=== PATIENT | female | born 1950 | race African-American/Black ===

== ENCOUNTER 2017-06-08 10:26 | Inpatient (IN) | payer MEDICARE, OTHER ==
[~2017-06-08] VITALS: Ht 170.2 cm; Wt 72.6 kg
--- NOTE | 2017-06-08 | NUR ---
RECEIVED PATIENT IN BED, ALERT AND ORIENTED X3, CALM, NO SOB, NO RESPIRATORY DISTRESS, DENIES ANY PAIN AT THIS TIME, LEFT AC PERIPHERAL LINE IS PATENT, FLUSHED WELL, ON TELE MONITORING, SR, AT THE BEDSIDE, NEEDS ATTENDED, CALL LIGHT WITHIN REACH.
--- NOTE | 2017-06-08 10:32 | NUR ---
BIBRA FOR ALTERED MENTAL STATUS AND GENERALIZED WEAKNESS, PATIENT ALSO REPORTED NAUSEA AND VOMITTING. RECEIVED PT AAO3. APPEARS IN NO APPARENT DISTRESS. RESPIRATION EVEN AND UNLABORED. SKIN IS WARM TO TOUCH AND NON DIAPHORETIC. PATIENT IS AFEBRILE. GOWNED PT AND PLACED ON TELE MONITOR. VSS
[2017-06-08] MEDS ORDERED: ONDANSETRON HCL/PF 4 MG/2 ML VIAL ONE (10:40)
--- NOTE | 2017-06-08 10:46 | NUR ---
DUE MEDS GIVEN ORDERED
--- NOTE | 2017-06-08 10:47 | NUR ---
EKG IN PROGRESS
[2017-06-08] MEDS ORDERED: IV NS 0.9% 500 ML BAG IV ONE (11:00)
[2017-06-08] MEDS ORDERED: ONDANSETRON HCL/PF 4 MG/2 ML VIAL IVP ONE (11:00)
[2017-06-08 11:20] LABS: CALCIUM, SERUM 8.8 mg/dL (8.5-10.1); CARBON DIOXIDE 21 mmol/L (21-32); CHLORIDE 105 mmol/L (98-107); CREATININE 0.8 mg/dL (0.6-1.3); GLUCOSE 163 mg/dL (74-106); POTASSIUM 3.7 mmol/L (3.5-5.1); SODIUM SERUM 137 mmol/L (136-145); UREA NITROGEN, BLOOD 12 mg/dL (7-18)
[2017-06-08 11:23] LABS: INR 0.95 (0.87-1.13); PROTHROMBIN TIME 9.9 SECS (9.5-12.7)
[2017-06-08 11:28] LABS: TROPONIN I < 0.017 ng/mL (0.00-0.056)
[2017-06-08] MEDS ORDERED: IV NS 0.9% 1,000 ML IV ONE (11:30)
[2017-06-08 11:33] LABS: B-TYPE NATRIURETIC PEPTIDE 59 PG/ML (0-125); BILIRUBIN,TOTAL 0.5 mg/dL (0.2-1.0); TOTAL PROTEIN, SERUM 7.1 g/dL (6.4-8.2)
[2017-06-08 11:50] LABS: ALANINE AMINOTRANSFERASE 15 U/L (12-78); ALBUMIN 3.3 g/dL (3.4-5.0); ALKALINE PHOSPHATASE 110 U/L (46-116); ASPARTATE AMINOTRANSFERASE 20 U/L (15-37); BILIRUBIN,DIRECT 0.1 mg/dL (0.0-0.2)
[2017-06-08 11:51] LABS: BASOPHILS # (AUTO) 0.1 /CMM (0.0-0.2); EOSINOPHILS # (AUTO) 0.1 /CMM (0.0-0.7); EOSINOPHILS % (AUTO) 1.6 % (0.0-6.0); HEMATOCRIT 44 % (33-45); HEMOGLOBIN 14.2 g/dL (11.5-14.8); LYMPHOCYTES % (AUTO) 16.3 % (20.0-44.0); MEAN CORPUSCULAR HEMOGLOBIN 28 PG (26.0-33.0); MEAN CORPUSCULAR HGB CONC 33 g/dl (31.0-36.0); MEAN CORPUSCULAR VOLUME 87 fL (82-100); MONOCYTES # (AUTO) 0.3 /CMM (0.1-1.30); MONOCYTES % (AUTO) 4.8 % (2.0-12.0); NEUTROPHILS # (AUTO) 4.4 /CMM (1.8-8.9); NEUTROPHILS % (AUTO) 76.3 % (43.0-81.0); PLATELET COUNT (AUTO) 138 /CMM (150-450); RDW COEFFICIENT OF VARIATION 12.9 (11.5-15.0); RED BLOOD CELL COUNT(AUTO) 5.01 MIL/uL (4.0-5.2); WHITE BLOOD COUNT (AUTO) 5.9 K/uL (4.3-11.0)
--- NOTE | 2017-06-08 12:43 | NUR ---
URINE SAMPLE COLLECTED SENT TO LAB
--- NOTE | 2017-06-08 12:54 | NUR ---
[facility] PAGED [phone]. DR BERNAL TRAY SERVER
[2017-06-08 12:56] LABS: APPEARANCE,URINE Clear (CLEAR); BILIRUBIN,URINE Negative (NEGATIVE); BLOOD, URINE Trace-intact Ery/uL (NEGATIVE); COLOR,URINE Yellow (YELLOW); KETONES,URINE Negative (NEGATIVE); LEUKOCYTE ESTERASE ,URINE Negative (NEGATIVE); NITRITE, URINE Negative (NEGATIVE); PH,URINE 5.5 (5.0-8.0); PROTEIN,URINE Negative (NEGATIVE); UGLUCOSE Negative (NEGATIVE); UROBILINOGEN,URINE 0.2 EU/dL (0.2)
[2017-06-08 13:04] LABS: EOSINOPHILS % (MANUAL) 3 % (0-4); LYMPHOCYTES % (MANUAL) 18 % (16-48); MONOCYTES % (MANUAL) 6 % (0-11.0); NEUTROPHILS % (MANUAL) 73 (42-76)
[2017-06-08] MEDS ORDERED: ALBU18HF2 IH (13:22)
[2017-06-08] MEDS ORDERED: HYDR50TA3 PO (13:22)
[2017-06-08] MEDS ORDERED: DONE10TA44 PO (13:22)
[2017-06-08] MEDS ORDERED: COMBIVENT IH (13:22)
[2017-06-08] MEDS ORDERED: AMLO5TAB2 PO (13:22)
[2017-06-08 13:27] LABS: RBC,URINE 0-2 /HPF (0-2)
[2017-06-08 13:28] LABS: BACTERIA,URINE None seen /HPF (None Seen); SQUAMOUS EPITHELIAL CELL,UR Few /HPF (None Seen); WBC,URINE NONE SEEN /HPF (0-3)
[2017-06-08] MEDS ORDERED: Z GUARD REMEDY 2 OZ OINT TP PRN (13:30)
[2017-06-08] MEDS ORDERED: MAG HYDROX/AL HYDROX/SIMETH 30 ML UDC PO PRN (13:30)
[2017-06-08] MEDS ORDERED: MAGNESIUM HYDROXIDE 30 ML UDC PO PRN (13:30)
[2017-06-08] MEDS ORDERED: HYDROCODONE/APAP 5/325MG 1 EACH TABLET PO PRN (13:30)
[2017-06-08] MEDS ORDERED: ONDANSETRON HCL/PF 4 MG/2 ML VIAL IVP PRN (13:30)
[2017-06-08] MEDS ORDERED: ACETAMINOPHEN 325 MG TABLET PO PRN (13:30)
[2017-06-08] MEDS ORDERED: ZOLPIDEM TARTRATE 5 MG TABLET PO PRN (13:30)
[2017-06-08] MEDS: ENOXAPARIN SODIUM 40 MG/0.4 ML DISP.SYRIN SQ SCH (13:30)
--- NOTE | 2017-06-08 14:08 | NUR ---
GAVE REPORT TO [facility] TELE ROOM 321 GENERALIZED WEAKNESS . MAGGIE LOGGING SUPERVISOR ADMITTING,
[2017-06-08 14:30] VITALS: BP 126/77
--- NOTE | 2017-06-08 14:45 | NUR ---
PLANNER INTERNKENO CLERK NOTE RECEIVED REPORT FROM LEILANI ER NURSE. PATIENT IS ALERT AND ORIENTED x4. NO PAIN AT THIS TIME. NO SOB OR DISTRESS NOTED. CALL LIGHT WITHIN REACH. SAFETY MEASURES IMPLEMENT. IV ON LEFT AC 20G, INTACT AND PATENT FLUSHING WELL. ABLE TO COMMUNICATE NEEDS. SKIN INTACT, NO ISSUES NOTED. AMBULATORY. ON CARDIAC DIET. TELE [id number], LOW 45. ALL BELONGINGS DOCUMENTED FOR, AND WITH PATIENT AT BEDSIDE. ON 2L/MIN OF OXYGEN VIA NASAL CANNULA 02 SAT AT 92%. HISTORY OF ASTHMA AND COPD. NO FAMILY HISTORY. MRSA, URINE AND BLOOD CX SAMPLE OBTAINED. WILL CONTINUE TO MONITOR
[2017-06-08 16:00] VITALS: BP 123/73
--- NOTE | 2017-06-08 17:00 | NUR ---
RICE FIELD WORKER NOTE PATIENT REFUSED MECHANICAL DVT PUMPS. EXPLAINED RISKS AND BENEFITS. PATIENT STILL REFUSED WILL ENDORSE TO PROFESSOR OF ENGLISH NURSE
--- NOTE | 2017-06-08 18:08 | NUR ---
JAZZ MUSICIAN CLOSING NOTE PATIENT IS ALERT AND ORIENTED x4. ALL NURSING NEEDS MET. ABLE TO COMMUNICATE NEEDS. NO PAIN AT THIS TIME. NO SOB OR DISTRESS NOTED. CALL LIGHT WITHIN REACH AT ALL TIMES. SAFETY MEASURES IMPLEMENTED. IV INTACT, NO REDNESS OR SWELLING NOTED. NO IVF RUNNING AT THIS TIME. KEPT CLEAN,DRY AND COMFORTABLE. WILL ENDORSE TO INVESTMENT ASSOCIATE NURSE FOR JOYCE
[2017-06-08 20:00] VITALS: BP 139/80
[2017-06-08] MEDS ORDERED: ALBUTEROL SULFATE 8 GM HFA.AER.AD IH PRN (23:30)
[2017-06-09] VITALS: BP 128/58
[2017-06-09] MEDS: IV NS 0.9% 1,000 ML IV PRN ×2 (00:20→16:56)
[2017-06-09 04:00] VITALS: BP 144/87
[2017-06-09 06:48] LABS: BASOPHILS % (AUTO) 0.4 % (0.0-2.0); EOSINOPHILS # (AUTO) 0.2 /CMM (0.0-0.7); HEMATOCRIT 39 % (33-45); HEMOGLOBIN 12.8 g/dL (11.5-14.8); LYMPHOCYTES # (AUTO) 1.3 /CMM (0.8-4.8); LYMPHOCYTES % (AUTO) 25.8 % (20.0-44.0); MEAN CORPUSCULAR HEMOGLOBIN 29 PG (26.0-33.0); MEAN CORPUSCULAR HGB CONC 33 g/dl (31.0-36.0); MEAN CORPUSCULAR VOLUME 88 fL (82-100); MONOCYTES # (AUTO) 0.4 /CMM (0.1-1.30); MONOCYTES % (AUTO) 6.9 % (2.0-12.0); NEUTROPHILS # (AUTO) 3.2 /CMM (1.8-8.9); NEUTROPHILS % (AUTO) 62.9 % (43.0-81.0); PLATELET COUNT (AUTO) 132 /CMM (150-450); RDW COEFFICIENT OF VARIATION 13.6 (11.5-15.0); RED BLOOD CELL COUNT(AUTO) 4.45 MIL/uL (4.0-5.2); WHITE BLOOD COUNT (AUTO) 5.1 K/uL (4.3-11.0)
--- NOTE | 2017-06-09 06:50 | NUR ---
PATIENT IS ALERT AND AWAKE, NO SOB, NO COMPLAIN OF PAIN, PER PATIENT "I FEEL MUCH BETTER NOW THAN YESTERDAY." LEFT AC PATENT AND INFUSING WELL, CONTINENT OF BOWEL AND BLADDER, COMPLIANT WITH MEDICATION, ALL NEEDS ATTENDED, CALL LIGHT WITHIN REACH, BY THE BEDSIDE.
[2017-06-09 07:00] VITALS: BP 135/72
[2017-06-09 07:05] LABS: THYROID STIMULATING HORMONE 0.922 uIU/mL (0.358-3.74)
--- NOTE | 2017-06-09 07:05 | NUR ---
GASOLINE TRUCK CRANE OPERATOR OPENING NOTES RECEIVED PT FROM NIGHTSHIFT NURSE IN STABLE CONDITION. PT IS A/O X3. NO COB OR SIGNS OF DISTRESS NOTED. BREATHING IS EVEN AND UNLABORED. PT. IS ON 2L O2 VIA NC AND SATING WELL @ 96%. PT DENIES ANY PAIN, WEAKNESS, OR DIZZINESS AT THIS TIME. PT IS SR ON THE TELE MONITOR WITH PACS AND A HR OH 64. IV PRESENT ON LEFT AC 20G INFUSING NS @75ML/HR. PT IS TOLERATING INFUSION WELL. NO REDNESS OR SIGNS OF INFILTRATION NOTED. IV IS PATENT, DRY, AND INTACT. BED IN LOW LOCKED, POSITION, SIDE RAILS UP X2, CALL LIGHT WITHIN REACH. PT'S IS AT BEDSIDE. WILL CONTINUE TO MONITOR.
[2017-06-09 07:07] LABS: CALCIUM, SERUM 8.8 mg/dL (8.5-10.1); CREATININE 0.9 mg/dL (0.6-1.3); MAGNESIUM 1.7 mg/dL (1.8-2.4); PHOSPHORUS 4.1 mg/dL (2.5-4.9); POTASSIUM 3.7 mmol/L (3.5-5.1)
[2017-06-09] MEDS ORDERED: ALBUTEROL FS 2.5 MG/0.5 ML VIAL.NEB NEB PRN (07:30)
[2017-06-09] MEDS: ASPIRIN 81 MG TAB.CHEW PO SCH (08:31)
[2017-06-09] MEDS: DONEPEZIL 5 MG TABLET PO SCH (08:32)
[2017-06-09] MEDS: HYDROCHLOROTHIAZIDE 25 MG TABLET PO SCH (08:32)
[2017-06-09] MEDS: AMLODIPINE BESYLATE 5 MG TABLET PO SCH (08:32)
[2017-06-09] MEDS: ENOXAPARIN SODIUM 40 MG/0.4 ML DISP.SYRIN SQ SCH (08:33)
[2017-06-09] MEDS ORDERED: AMLODIPINE BESYLATE 5 MG TABLET PO SCH (09:00)
[2017-06-09] MEDS: Magnesium 1GM/D5W 100ML PREMIX 100 ML IV SCH ×2 (10:20→13:29)
[2017-06-09 16:00] VITALS: BP 144/95
--- NOTE | 2017-06-09 18:49 | NUR ---
MS RN CLOSING NOTES PT REMAINS STABLE. NO ACUTE CHANGES IN CONDITION DURING SHIFT. ALL NEEDS WERE ANTICIPATED AND MET. ALL SAFETY MEASURES IN PLACE. ALL ORDERS CARRIED OUT ACCORDINGLY. WILL ENDORSE TO NIGHTSHIFT NURSE FOR JOYCE
--- NOTE | 2017-06-09 19:30 | NUR ---
RN NOTES RECEIVED PATIENT IN BED AWAKE, AO X 3, ABLE TO MAKE NEEDS KNOWN. NO ACUTE DISTRESS NOTED. DENIES ANY PAIN AT THIS TIME. IV SITE PATENT, INTACT; IVF INFUSING ORDERED. SAFETY REMINDERS GIVEN. ON LOW BED WITH BILATERAL UPPER SIDE RAILS UP. CALL LIGHT WITHIN EASY REACH. WILL CONTINUE TO MONITOR.
[2017-06-09 20:00] VITALS: BP 149/73
--- NOTE | 2017-06-10 06:25 | NUR ---
RN NOTES PATIENT AWAKE. NO SIGNS OF ACUTE DISTRESS. DENIES ANY PAIN AT THIS TIME. NEEDS ATTENDED. SAFETY PRECAUTIONS AND COMFORT MEASURES IN PLACE. WILL GIVE REPORT TO DAY SHIFT FOR CONTINUITY OF CARE.
--- NOTE | 2017-06-10 07:15 | NUR ---
MS RN OPENING NOTES RECEIVED PT FROM NIGHTSHIFT NURSE IN STABLE CONDITION. PT IS A/O X3. NO SOB OR SIGNS OF DISTRESS NOTED. BREATHING IS EVEN AND UNLABORED. PT. IS ON RA AND SATING WELL @ 96%. PT DENIES ANY PAIN, WEAKNESS, OR DIZZINESS AT THIS TIME. IV PRESENT ON LEFT AC 20G INFUSING NS @75ML/HR. PT IS TOLERATING INFUSION WELL. NO REDNESS OR SIGNS OF INFILTRATION NOTED. IV IS PATENT, DRY, AND INTACT. BED IN LOW LOCKED, POSITION, SIDE RAILS UP X2, CALL LIGHT WITHIN REACH. WILL CONTINUE TO MONITOR.
[2017-06-10 07:52] LABS: CALCIUM, SERUM 9.3 mg/dL (8.5-10.1); CREATININE 0.8 mg/dL (0.6-1.3); MAGNESIUM 2.1 mg/dL (1.8-2.4); POTASSIUM 3.7 mmol/L (3.5-5.1)
[2017-06-10 08:00] VITALS: BP_SYST 154; BP_SYST 156; BP_DIAS 94; BP_DIAS 99
[2017-06-10] MEDS: ASPIRIN 81 MG TAB.CHEW PO SCH (08:23)
[2017-06-10] MEDS: HYDROCHLOROTHIAZIDE 25 MG TABLET PO SCH (08:23)
[2017-06-10] MEDS: DONEPEZIL 5 MG TABLET PO SCH (08:24)
[2017-06-10] MEDS: AMLODIPINE BESYLATE 5 MG TABLET PO SCH (08:24)
[2017-06-10] MEDS: ENOXAPARIN SODIUM 40 MG/0.4 ML DISP.SYRIN SQ SCH (08:27)
--- NOTE | 2017-06-10 14:23 | NUR ---
MS RN NOTES PT DOWN FOR MRI
--- NOTE | 2017-06-10 15:04 | NUR ---
MS RN NOTES PT BACK IN STABLE CONDITION FROM MRI. WILL AWAIT RESULTS
[2017-06-10 16:00] VITALS: BP 149/89
--- NOTE | 2017-06-10 19:00 | NUR ---
RN NOTE PT AAOX3, NO S/S OF ANY DISTRESS AT THIS TIME. BREATHING AMBER AND NON-LABORED. IV INTACT AND PATENT. CALL LIGHT IN REACH, WILL MONITOR.
[2017-06-10 20:00] VITALS: BP 127/72
[2017-06-10] MEDS ORDERED: ATORVASTATIN 10 MG TABLET PO SCH (22:00)
--- NOTE | 2017-06-11 06:45 | NUR ---
RN NOTE NO SIGNIFICNT CHANGES OVERNIGHT - PT SLEPT WELL. AAOX3, NO S/S OR C/O PAIN OR DISCOMFRT. IV INTACT AND PATENT, ALL NEEDS ATTENDED TO. WILL F/U WITH DAY SHIFT FOR JOYCE FOR SNF PLACEMENT
--- NOTE | 2017-06-11 07:10 | NUR ---
MS RN OPENING NOTE RECEIVED REPORT ON TH PATIENT. PATIENT IS RESTING IN BED COMFORTABLY WITH THE EYES CLOSED. BED IS LOCKED, IN LOWEST POSITION, SIDE RAILS UP X 2. PRESENTS WITH NON-LABORED BREATHING ON 1.5 L O2. WILL RETURN TO REASSESS.
[2017-06-11 08:00] VITALS: BP_SYST 129; BP_DIAS 72; BP_DIAS 78
[2017-06-11] MEDS: DONEPEZIL 5 MG TABLET PO SCH (09:01)
[2017-06-11] MEDS: ASPIRIN 81 MG TAB.CHEW PO SCH (09:01)
[2017-06-11] MEDS: AMLODIPINE BESYLATE 5 MG TABLET PO SCH (09:02)
[2017-06-11 09:04] VITALS: BP 129/78
[2017-06-11] MEDS: HYDROCHLOROTHIAZIDE 25 MG TABLET PO SCH (09:04)
[2017-06-11] MEDS: ENOXAPARIN SODIUM 40 MG/0.4 ML DISP.SYRIN SQ SCH (09:08)
--- NOTE | 2017-06-11 18:11 | NUR ---
MS LAP MAKER NOTE DISCHARGE ORDER RECEIVED. DISCHARGE EDUCATION/INSTRUCTIONS PREPARED. PATIENT EDUCATION COMPETED. PATIENT VERBALIZED FAIR UNDERSTANDING OF DISCHARGE INSTRUCTIONS. AMBULATION IS SET TO FISCAL SERVICES MANAGER THE PATIENT AT 1830 AND TRANSPORT TO [facility]. TELEPHONE REPORT GIVEN TO ERROL CARSON AT [facility]. IV CATHETE REMOVED, TIP OBSERVED INTACT, NO S/S OF INFECTION. OCCLUSIVE DRESSING APPLIED. VS WNL. PATIENT IS STABLE.
--- NOTE | 2017-06-11 18:30 | NUR ---
MS INDIVIDUALIZED EDUCATION PLAN AIDE NOTE PATIENT IS LEAVING THE UNIT VIA COURNEY ACCOMPANIED BY AMBULANCE. PATIENT IS STABLE. REPORT GIVEN TO AMBULANCE.
== END 2017-06-11 18:35 | DRG 922 ==
LOC: ER 10:28 → MED 14:09 → TELE 16:24 → MED 06-09 09:01
PROVIDERS: ADMIT Nurse Practitioner Acute Care; ATTEND Nurse Practitioner Acute Care
DX: T67.5XXA Heat exhaustion, unspecified, initial encounter (principal); G93.40 Encephalopathy, unspecified; I69.354 Hemiplegia and hemiparesis following cerebral infarction affecting left non-dominant side; G30.9 Alzheimer's disease, unspecified; E83.42 Hypomagnesemia; F02.80 Dementia in other diseases classified elsewhere, unspecified severity, without behavioral disturbance, psychotic disturbance, mood disturbance, and anxiety; I48.91 Unspecified atrial fibrillation; X58.XXXA Exposure to other specified factors, initial encounter; Y92.89 Other specified places as the place of occurrence of the external cause; J45.909 Unspecified asthma, uncomplicated; Z79.899 Other long term (current) drug therapy; Z59.0 Homelessness
CPT/HCPCS: 36415; 70450-TC; 70551-TC; 71010-TC; 80048-TC; 80061-TC; 80076-TC; 81000-TC; 83605-TC; 83735-TC; 83880; 84100-TC; 84443-TC; 84484-TC; 85025-TC; 85730-TC; 87040-TC; 87081-TC; 87086-TC; 93307-TC; 93880-TC; A4606; J1650; J2405; J3475; J7030; J7040; Z7610